=== PATIENT | female | born 2000 | race Caucasian/White ===

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

== ENCOUNTER 2020-03-04 12:42 | Emergency (ER) | payer OTHER, SELFPAY ==
[2020-03-04 13:51] VITALS: BP 112/75; PULSE 71; RESP 16; TEMP 36.7; O2SAT 100; BMI 26.4
--- NOTE | 2020-03-04 13:51 | HMH.EDUTC ---
[place] Disposition Clinical Impression: Viral syndrome Disposition: Home, Self-Care Condition on Discharge: Good Instructions: DI for Viral Syndrome, Preventing the Spread of Coronavirus Discharge Instructions Additional Instructions: Drink plenty of fluids. Take tylenol for pain or fever. Take the medications as directed. Follow up with your regular doctor. GO TO THE ER FOR ANY WORSENING SYMPTOMS FOLLOW THE DIRECTIONS ON THE COVID-19 HAND OUT THAT WE GAVE YOU REGARDING SELF-ISOLATION UNTIL YOU KNOW YOUR COVID-19 RESULTS Referrals: Maldonado Fallon MD [Primary Care Provider] - Forms: Work/School Release Time of Disposition: 14:16 Medical Decision Making - Medical Records Medical records reviewed: No: I reviewed the patient's medical records. - Marek Inquiry Pt receiving controlled substance: No Vital Signs: 03/04/20 13:51 03/04/20 14:16 Temperature 98.1 F 98.1 F Temperature Source Oral Pulse Rate 71 Pulse Rate [Right Radial] 71 Respiratory Rate 16 16 Blood Pressure 112/75 Blood Pressure [Left Arm] 112/75 Blood Pressure Mean [Left Arm] 87 Blood Pressure Source [Left Arm] Automatic Cuff Blood Pressure Position Sitting Blood Pressure Position [Left Arm] Sitting 02 Sat by Pulse Oximetry 100 Oxygen Delivery Method Room Air Room Air Orders (Tests/Meds): ORDERS Category Date Time Status Covid-19 Nasal PCR ([facility]) Routine Lab 03/04/20 14:05 Received [place] HPI - General Stated complaint: covid test Time Seen by Provider: 03/04/20 13:51 - History of Present Illness Provider Complaint: She states that for the past 2 days she has had a headache, sinus congestion, nonproductive cough. 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 - Related Data Home Medications Medication Instructions Recorded Confirmed Norgestimate-Ethinyl Estradiol 1 each PO DAILY 07/14/18 08/10/19 [Ortho Tri-Cyclen Lo Tablet] Allergies Allergy/AdvReac Type Severity Reaction Status Date / Time No Known Allergies Allergy Unverified 04/29/17 15:10 [facility] History - Hepatitis A Screen Attestation statement:: This patient has been screened for Hepatitis A risk factors. I have reviewed the patient's past medical history: Yes Medical History: Denies:: Cancer, Diabetes Mellitus Type 1, Diabetes Mellitus Type 2, MRSA Amputation: No - Social History Smoking Status: Never smoker Alcohol Intake: never Occupational Status: employed ROS Obtained: Yes All systems reviewed & no additional complaints - Constitutional Constitutional: Reports system reviewed and no additional complaints, except as docu - Eyes Eyes: Reports system reviewed and no additional complaints, except as docu - ENT Ears, Nose, Mouth, and Throat: Reports system reviewed and no additional complaints, except as docu - Cardiovascular Cardiovascular: Reports system reviewed and no additional complaints, except as docu - Respiratory Respiratory: Yes system reviewed and no additional complaints, except as docu - Gastrointestinal Gastrointestingal: Reports: system reviewed and no additional complaints, except as docu Physical Exam - General General appearance: alert, in no apparent distress - Head Head exam: atraumatic, normocephalic, normal inspection - Eye Eye exam: Present: normal appearance, PERRL, EOMI - ENT ENT exam: Present: normal exam, normal oropharynx, mucous membranes moist, TM's normal bilaterally, normal external ear exam - Neck Neck exam: Present: normal inspection, full ROM, trachea midline. Absent: meningismus, lymphadenopathy - Chest Chest inspection: Present: normal inspection, symmetric chest wall rise. Absent: tenderness - Respiratory Respiratory exam: Present: normal lung sounds bilaterally. Absent: respiratory distress - Cardiovascular Cardiovascular exam: Present: regular rate, normal rhythm. Absent: JVD - Abdominal Exam Abdominal exam: Present: soft, normal
[2020-03-04 14:16] VITALS: BP 112/75; PULSE 71; RESP 16; TEMP 36.7; O2SAT 100
== END 2020-03-04 14:21 | disposition home or self-care (01) ==
PROVIDERS: Emergency Provider Nurse Practitioner Family; PCP Internal Medicine Adolescent Medicine
DX: Z20.828 Contact with and (suspected) exposure to other viral communicable diseases (principal); B34.9 Viral infection, unspecified
CPT/HCPCS: 99201; U0003

== ENCOUNTER → 2020-11-01 11:42 | Outpatient (CLI) | payer OTHER, SELFPAY ==
[2020-11-01 12:33] LABS: Alanine Aminotransferase 14 U/L (12-78); Albumin Level 4.3 g/dl (3.5-5.0); Albumin/Globulin Ratio 1.3 (1.1-1.8); Alkaline Phosphatase 74 U/L (38-126); Aspartate Amino Transferase 26 U/L (14-36); Bilirubin,Total 0.7 mg/dl (0.2-1.3); Blood Urea Nitrogen 12 mg/dl (7-17); Calcium 9.3 mg/dl (8.4-10.2); Carbon Dioxide 25 mmol/L (22.0-30.0); Chloride 102 mmol/L (98-107); Chol/HDL Ratio 2.1 (1-3.5); Cholesterol 181 mg/dl (140-200); Estimated Glomerular Filt Rate 108 ml/min (>60); GFR (African American) 130 ML/MIN (>60); Globulin 3.4 g/dL (1.3-3.2); Glucose 90 mg/dl (74-100); HDL Cholesterol 87 mg/dl (40-60); Sodium 138 mmol/L (136-145); Total Protein,Serum 7.7 g/dl (6.3-8.2); Triglycerides 68 mg/dl (30-150); VLDL Cholesterol 14 mg/dL (0-40)
[2020-11-01 12:44] LABS: Direct LDL Cholesterol 83.55 mg/dL (100-129)
[2020-11-01 12:53] LABS: HCG,Quantitative < 2 mIU/ml (0-5.42)
== END ==
PROVIDERS: Visit Provider Internal Medicine Adolescent Medicine
DX: Z00.00 Encounter for general adult medical examination without abnormal findings (principal); Z30.09 Encounter for other general counseling and advice on contraception
CPT/HCPCS: 36415; 80053; 80061; 84702

== ENCOUNTER 2021-01-17 14:53 | Emergency (ER) | payer OTHER, SELFPAY ==
[2021-01-17 16:10] VITALS: BP 115/81; PULSE 68; RESP 17; TEMP 37; O2SAT 100; BMI 27.3
--- NOTE | 2021-01-17 16:19 | HMH.EDUTC ---
[facility] [place] Clinical Impression: Encounter for laboratory testing for COVID-19 virus Disposition: Home, Self-Care Condition on Discharge: Good Instructions: DI for COVID-19 (Suspected or Confirmed ), Preventing the Spread of Coronavirus Discharge Instructions Additional Instructions: *Monitor Temp, Over the counter Motrin or Tylenol as directed/as needed Tylenol every 4 hours and Motrin every 6 hours (as long as your family doctor has told you that you can take it) for fever or pain. and straight to ER if unable to lower temp less than 101.0 after medication given Follow up IMMEDIATELY for new or worsening symptoms or no Noticeable improvement over the next 48-72 hours. 911 for difficulty breathing or swallowing You were tested for today for COVID19 your test result should be back in the next 24-48 hours, you was given instructions on how to log on the [facility] portal for your results. If you do not have internet or access you may call the [facility]. You was given a handout with instructions for Self Quarantine and Self isolation for while you wait on test results and what to do if they are positive If you are positive the Health Dept will be contacting you also Make sure to take your Vitamins Vit. C Vit D and Zinc if you can take them Referrals: Maldonado Fallon MD [Primary Care Provider] - As needed Forms: Work/School Release Medical Decision Making - Marek Inquiry Pt receiving controlled substance: No Marek was queried for this patient: No Vital Signs: 01/17/21 16:10 Temperature 98.6 F Temperature Source Oral Pulse Rate [Right] 68 Respiratory Rate 17 Blood Pressure [Right Arm] 115/81 Blood Pressure Mean [Right Arm] 92 02 Sat by Pulse Oximetry 100 [facility] [place] - General Stated complaint: exposure ,covid test Time Seen by Provider: 01/17/21 16:19 Description of Symptoms (Recalled from Triage Doc. by RN): COVID TEST, POSITIVE 5 DAYS AGO, THEN NEGATIVE YESTERDAY AT WORK. DENIES SYMPTOMS HEENT Symptoms (Recalled from RN notes): No Resp Symptoms (Recalled from RN notes): No Skin Symptoms (Recalled from RN notes): No MS Symptoms (Recalled from RN notes): No Functional Status (Recalled from RN notes): WNL - History of Present Illness Provider Complaint: Patient states that she has taken several of the Rapid COVID test at work States that first test about 5 days ago was positive and one yesterday was negative so she came in today to get retested to see what it shows denies any symptoms - Related Data Home Medications Medication Instructions Recorded Confirmed Norgestimate-Ethinyl Estradiol 1 each PO DAILY 07/14/18 01/17/21 [Ortho Tri-Cyclen Lo Tablet] Allergies Allergy/AdvReac Type Severity Reaction Status Date / Time No Known Allergies Allergy Verified 01/17/21 16:15 - Worker's Comp Is this a Worker's Comp case?: No [facility] History - Hepatitis A Screen Drug use history?: No High risk sexual behaviors?: No History of sexually transmitted infection?: No Currently employed?: No Childcare worker?: No Do you have indoor plumbing?: Yes Do you have electricity?: Yes Attestation statement:: This patient has been screened for Hepatitis A risk factors. I have reviewed the patient's past medical history: Yes Medical History: Denies:: Cancer, Diabetes Mellitus Type 1, Diabetes Mellitus Type 2, MRSA Amputation: No - Social History Smoking Status: Never smoker Alcohol Intake: never Occupational Status: employed ROS Obtained: Yes All systems reviewed & no additional complaints, Yes Systems reviewed as appropriate & no additional complaints - Constitutional Constitutional: Reports system reviewed and no additional complaints, except as docu, Denies body ache, Denies chills, Denies fatigue, Denies fever(s), Denies headache(s) - ENT Ears, Nose, Mouth, and Throat: Reports system reviewed and no additional complaints, except as docu, Denies nasal congestion, Denies nasal discharge, Denies
[2021-01-17 16:31] VITALS: BP 115/81; PULSE 68; RESP 17; TEMP 37; O2SAT 100
--- NOTE | 2021-01-18 18:15 | PC.NURSE ---
informed patient that she is positive
== END 2021-01-17 16:32 | disposition home or self-care (01) ==
PROVIDERS: Emergency Provider Nurse Practitioner; PCP Internal Medicine Adolescent Medicine
DX: U07.1 COVID-19 (principal)
CPT/HCPCS: 99202; G0463; U0003

== ENCOUNTER 2021-02-26 15:49 | Emergency (ER) | payer OTHER, SELFPAY ==
[2021-02-26 15:50] VITALS: BP 144/84; PULSE 110; RESP 16; TEMP 37.7; O2SAT 98; BMI 24.9
--- NOTE | 2021-02-26 16:24 | HMH.EDUTC ---
[facility] [place] Dis[place] Clinical Impression: Viral syndrome Disposition: Home, Self-Care Condition on Discharge: Good Instructions: DI for Viral Syndrome Additional Instructions: Drink plenty of fluids. Take tylenol or ibuprofen for pain or fever. Take the medications as directed. Follow up with your regular doctor. GO TO THE ER FOR ANY WORSENING SYMPTOMS Quarantine until you know the results of your covid-19 test. If it is positive, the health department should call you and give you further instructions about your length of Quarantine and other things. Notify your school or workplace of your results and follow their instructions regarding return to work/school. Prescriptions: Ondansetron [Zofran 4mg ODT] 4 mg PO Q8HP PRN #12 tab PRN Reason: Nausea Transmission Status: Received by [facility] #[id number] Referrals: Maldonado Fallon MD [Primary Care Provider] - Forms: Work/School Release Time of Disposition: 17:20 Medical Decision Making - Medical Records Medical records reviewed: Yes: I reviewed the patient's medical records. - Marek Inquiry Pt receiving controlled substance: No Vital Signs: 02/26/21 15:50 02/26/21 17:45 Temperature 99.9 F H 99.9 F H Temperature Source Oral Pulse Rate 110 H Pulse Rate [Right] 110 H Respiratory Rate 16 16 Blood Pressure 128/70 Blood Pressure [Right Arm] 144/84 H Blood Pressure Mean [Right Arm] 104 Blood Pressure Source Automatic Cuff Blood Pressure Source [Right Arm] Automatic Cuff Blood Pressure Position Sitting Blood Pressure Position [Right Arm] Sitting 02 Sat by Pulse Oximetry 98 Oxygen Delivery Method Room Air Room Air - Lab Data Lab results reviewed: Yes: I reviewed the patient's lab results. Lab Results 02/26/21 16:17: SARS-CoV-2 (PCR) Not detected, Influenza A Untype (PCR) Not detected, Influenza Type B (PCR) Not detected 02/26/21 16:48: Strep Scn Rapid Clinic Negative Orders (Tests/Meds): ORDERS Category Date Time Status Strep Screen Confirmation Routine Micro 02/26/21 16:48 Received [facility] [place] HPI - General Stated complaint: fever,chills,sore throat,cough,DOTY Time Seen by Provider: 02/26/21 16:24 Mode of Arrival: Ambulatory Source of Information: Patient Limitations: No Limitations Description of Symptoms (Recalled from Triage Doc. by RN): pt c/o body aches, fever, chills, headache that started this morning HEENT Symptoms (Recalled from RN notes): Yes (multiple symptoms) Resp Symptoms (Recalled from RN notes): No Skin Symptoms (Recalled from RN notes): No MS Symptoms (Recalled from RN notes): No Functional Status (Recalled from RN notes): na - History of Present Illness Provider Complaint: She states that since yesterday she has felt bad. Her main complaint is body aches at this time. She has also been chilling. She denies any sore throat, n/v/d, and cough. - Related Data Home Medications Medication Instructions Recorded Confirmed Norgestimate-Ethinyl Estradiol 1 each PO DAILY 07/14/18 01/17/21 [Ortho Tri-Cyclen Lo Tablet] Previous Rx's Medication Instructions Recorded Ondansetron [Zofran 4mg ODT] 4 mg PO Q8HP PRN #12 tab 02/26/21 Allergies Allergy/AdvReac Type Severity Reaction Status Date / Time No Known Allergies Allergy Verified 01/17/21 16:15 - Worker's Comp Is this a Worker's Comp case?: No [facility] History - Hepatitis A Screen Drug use history?: No High risk sexual behaviors?: No History of sexually transmitted infection?: No Currently employed?: No Childcare worker?: No Do you have indoor plumbing?: Yes Do you have electricity?: Yes Attestation statement:: This patient has been screened for Hepatitis A risk factors. I have reviewed the patient's past medical history: Yes Medical History: Denies:: Cancer, Diabetes Mellitus Type 1, Diabetes Mellitus Type 2, MRSA Amputation: No - Social History Smoking Status: Never smoker Alcohol Intake: never O
[2021-02-26 16:50] LABS: Coronavirus 19, PCR Not Detected (NotDetected); Influenza A, PCR Not Detected (NotDetected); Influenza B, PCR Not Detected (NotDetected)
[2021-02-26 17:05] LABS: UTC Strep Screen (Rapid) Negative (Negative)
[2021-02-26 17:45] VITALS: BP 128/70; PULSE 110; RESP 16; TEMP 37.7; O2SAT 98
== END 2021-02-26 17:47 | disposition home or self-care (01) ==
PROVIDERS: Emergency Provider Nurse Practitioner Family; PCP Internal Medicine Adolescent Medicine
DX: B34.9 Viral infection, unspecified (principal); R11.2 Nausea with vomiting, unspecified
CPT/HCPCS: 87880; 99203; C9803; G0463; U0003; U0005

== ENCOUNTER → 2021-12-19 17:05 | Outpatient (CLI) | payer OTHER, SELFPAY | PROVIDERS: PCP Internal Medicine Adolescent Medicine; Visit Provider Internal Medicine Adolescent Medicine | DX: R19.7 Diarrhea, unspecified (principal) ==

== ENCOUNTER → 2021-12-20 16:26 | Outpatient (CLI) | payer OTHER, SELFPAY ==
[2021-12-20 16:36] LABS: Adenovirus F 40/41, stool Not Detected (NotDetected); Astrovirus Not Detected (NotDetected); Campylobacter Not Detected (NotDetected); Clostridium Difficile A/B, PCR Not Detected (NotDetected); Cryptosporidium Not Detected (NotDetected); Cyclospora Cayetanesis Not Detected (NotDetected); Entamoeba histolytica Not Detected (NotDetected); Enteroaggregative E coli Not Detected (NotDetected); Enterotoxigenic E coli Not Detected (NotDetected); Giardia lamblia Not Detected (NotDetected); Norovirus Not Detected (NotDetected); Plesimonas Shigalloides, PCR Not Detected (NotDetected); Rotavirus A Not Detected (NotDetected); Salmonella, PCR Not Detected (NotDetected); Sapovirus Not Detected (NotDetected); Shiga-like toxin E coli Not Detected (NotDetected); Shigella Enterovasive E coli Not Detected (NotDetected); Vibrio Cholerae Not Detected (NotDetected); Vibrio, PCR Not Detected (NotDetected); Yersinia Entercolitica, PCR Not Detected (NotDetected)
[2021-12-20 21:42] LABS: Enteropathogenic E coli Detected (NotDetected)
== END ==
PROVIDERS: PCP Internal Medicine Adolescent Medicine; Visit Provider Internal Medicine Adolescent Medicine
DX: R19.7 Diarrhea, unspecified (principal); A04.0 Enteropathogenic Escherichia coli infection
CPT/HCPCS: 87507

== ENCOUNTER → 2023-05-08 13:57 | Outpatient (CLI) | payer BC, OTHER, SELFPAY ==
--- NOTE | 2023-05-08 13:58 | US_ITS ---
PROCEDURE: US OB BIOPHYSICAL PROFILE CLINICAL INDICATION: sga COMPARISON: FINDINGS: Transabdominal sonographic images of the uterus were obtained. From her established due date she is 32weeks 6days. The following parameters are obtained: Viable fetus in the cephalic presentation with an anterior placenta grade 2 Average ultrasound age is 32weeks 2days. Estimated due date by ultrasound is 07/01/2023. Estimated weight is 4lb 1oz, 1852 grams. Cervical length is 3.8 cm. heart rate: 128bpm bpm. BPD: 32 weeks 6 days OFD: 32weeks 2 days HC: 32 weeks 2 days AC: 31 weeks 6 days FL: 31 weeks 4 days HC/AC: 1.05 Cephalic index: 0.79 FL/BPD: 0.74 FL/AC: 0.22 15 percentile Amniotic fluid index: 10.2cm, MVP 3.96 cm. Qualitative AFV: 2 breathing movements: 2 Gross body movements: 2 Tone: 2 Biophysical profile score: 8 Doppler evaluation of the umbilical artery: SD ratio: 2.50-2.78 Resistive index: 0.64 No obvious anomalies evident.Kidneys, three-vessel cord appear normal. IMPRESSION: 1. Viable fetus in the cephalic presentation with an anterior placenta grade 2. 2. The fluid is within normal limits with an amniotic fluid index of 10.2 cm, MVP 3.96 cm. 3. Biophysical profile 8/8 with good breathing movement and movement seen. 4. SD ratio is normal measuring 2.50-2.78. 5. There has been good interval growth with the fetus currently 15 percentile. The AC is 1 week behind. Dictated by: Kendall Zhang MD 05/09/2023 13:52 Kendall Zhang MD in [place] 05/09/2023 13:52
== END ==
LOC: RAD 13:58
PROVIDERS: PCP Internal Medicine Adolescent Medicine; Visit Provider Obstetrics & Gynecology
DX: O36.5930 Maternal care for other known or suspected poor fetal growth, third trimester, not applicable or unspecified (principal); Z3A.32 32 weeks gestation of pregnancy
CPT/HCPCS: 76816; 76819; 76820

== ENCOUNTER 2023-06-05 09:26 | Outpatient (CLI) | payer BC, OTHER, SELFPAY | END 2023-06-05 23:59 | LOC: LAB.DROPOF 06-09 09:27 | PROVIDERS: PCP Obstetrics & Gynecology; Visit Provider Obstetrics & Gynecology | DX: Z34.90 Encounter for supervision of normal pregnancy, unspecified, unspecified trimester (principal) | CPT/HCPCS: 86403 ==

== ENCOUNTER 2023-06-05 12:58 | Outpatient (CLI) | payer BC, OTHER, SELFPAY ==
--- NOTE | 2023-06-05 12:58 | US_ITS ---
PROCEDURE: US OB BIOPHYSICAL PROFILE CLINICAL INDICATION: sga COMPARISON: US US OB BIOPHYSICAL PROFILE from 05/08/2023 FINDINGS: Transabdominal sonographic images of the uterus were obtained. From her established due date she is 36weeks 6days. The following parameters are obtained: Viable Fetus in the cephalic presentation with and anterior placenta grade 2. Average ultrasound age is 36weeks 1day Estimated weight 2,871g, 6 lb 5 oz Cervix measures 2.9 cm. Measurements: heart Rate = 135bpm BPD = 36weeks 0 days HC = 36weeks 0 days AC = 36weeks 3days FL = 36weeks 0 days FL/BPD is 0.79 FL/AC is 0.22 37 percentile Amniotic fluid index: 6.04cm, MVP 4.71 cm. Qualitative AFV:2 Breathing movements: 2 Gross Body Movements: 2 Tone: 2 Biophysical profile score: 8 Doppler evaluation of the umbilical artery: SD ratio: 2.19-2.49 Resistive index: 0.54 No obvious anomalies evident.Kidneys, stomach, bladder, three-vessel cord appear normal. IMPRESSION: 1. Viable fetus in the cephalic presentation with an anterior placenta grade 2. 2. The fluid is within normal limits with an amniotic fluid index of 6.04 cm. MVP 4.71 cm. 3. Biophysical profile 12/17 with good breathing movements and movement seen. 4. There has been good interval growth with the fetus currently 37th percentile. Dictated by: Kendall Zhang MD 06/07/2023 10:14 Kendall Zhang MD in OV 06/07/2023 10:14
== END 2023-06-05 23:59 ==
LOC: RAD 12:58
PROVIDERS: PCP Internal Medicine Adolescent Medicine; Visit Provider Obstetrics & Gynecology
DX: O36.5930 Maternal care for other known or suspected poor fetal growth, third trimester, not applicable or unspecified (principal); Z3A.36 36 weeks gestation of pregnancy
CPT/HCPCS: 76816; 76819; 76820; 86403

== ENCOUNTER 2023-06-25 07:54 | Outpatient (CLI) | payer BC, OTHER, SELFPAY ==
[2023-06-25 08:23] VITALS: BMI 27.2
[2023-06-25 08:29] LABS: Microscopic, Urine URINE MICROSCOPIC (MICROSCOPIC)
[2023-06-25 08:31] VITALS: BP 114/74; PULSE 94; RESP 17; TEMP 37.1; O2SAT 98; BMI 27.2
[2023-06-25 08:34] LABS: Fetal Membrane Rupture (Rapid) Negative (Negative)
[2023-06-25 08:38] LABS: Appearance,Urine CLEAR (Clear); Bilirubin,Urine Negative (Negative); Blood, Urine Negative (Negative); Color,Urine YELLOW (Yellow); Glucose,Urine (UA) Negative (Negative); Ketones,Urine Negative (Negative); Leukocyte Esterase,Urine TRACE (Negative); Nitrate,Urine Negative (Negative); PH,Urine 7.5 (5.0-8.5); Protein,Urine Negative (Negative)
[2023-06-25 08:51] LABS: Amphetamine/Metha Screen,Urine Negative ng/ml (<1000); Benzodiazepines Screen,Urine Negative ng/ml (<200)
[2023-06-25 08:52] LABS: Barbiturates Screen,Urine Negative ng/ml (<200)
[2023-06-25 08:54] LABS: Cocaine Screen,Urine Negative ng/ml (<300)
[2023-06-25 08:55] LABS: Opiate Screen,Urine Negative ng/ml (<300); Phencyclidine Screen,Urine Negative ng/ml (<25)
[2023-06-25 09:01] LABS: Methadone Screen,Urine Negative ng/ml (<300)
[2023-06-25 12:39] LABS: Cannabinoid Screen,Urine Negative ng/ml (<50)
== END 2023-06-25 09:00 | disposition home or self-care (01) ==
LOC: OBOUT 07:54 → OB 07:55
PROVIDERS: PCP Internal Medicine Adolescent Medicine; Visit Provider Nurse Practitioner Obstetrics & Gynecology
DX: O26.893 Other specified pregnancy related conditions, third trimester (principal); Z3A.39 39 weeks gestation of pregnancy
CPT/HCPCS: 59025; 80307; 81001; 84112; G0463

== ENCOUNTER 2023-07-01 14:55 | Inpatient (IN) | payer BC, OTHER, SELFPAY ==
[2023-07-01 15:03] VITALS: BMI 26.9
[2023-07-01 15:46] VITALS: BP 124/77; PULSE 97; RESP 18; TEMP 36.7; O2SAT 100; BMI 26.9
[2023-07-01 15:50] LABS: Basophils % 0.4 % (0.1-2.0); Eosinophils % 0.4 % (0.1-12.0); Hematocrit 32.4 % (37.0-47.0); Hemoglobin 10.6 g/dL (12.2-16.2); Lymphocytes # 3.2 K/mm3 (0.7-4.5); Lymphocytes % 33.1 % (10-50); Mean Corpuscular HGB Conc 32.8 g/dL (31.8-35.4); Mean Corpuscular Hemoglobin 23.9 pg (27.0-31.2); Mean Corpuscular Volume 72.9 fl (81-99); Mean Platelet Volume 11.8 fl (7.4-10.4); Monocytes # 0.6 K/mm3 (0.1-1.0); Monocytes % 5.7 % (1.7-9.3); Neutrophils # 5.9 K/mm3 (1.8-7.8); Neutrophils % 60.4 % (37.0-80.0); Platelet Count 222 K/mm3 (142-424); Red Blood Count 4.44 M/mm3 (4.20-5.40); Red Cell Distribution Width 16.8 % (11.5-17.5); White Blood Count 9.7 K/mm3 (4.8-10.8)
[2023-07-01 15:53] LABS: Microscopic, Urine URINE MICROSCOPIC (MICROSCOPIC)
[2023-07-01] MEDS: miSOPROStol 100MCG TABLET 50 MCG VG ×2 (16:19→22:32)
[2023-07-01 16:24] LABS: Appearance,Urine CLEAR (Clear); Bilirubin,Urine Negative (Negative); Blood, Urine Negative (Negative); Color,Urine YELLOW (Yellow); Glucose,Urine (UA) Negative (Negative); Ketones,Urine Negative (Negative); Leukocyte Esterase,Urine Negative (Negative); Nitrate,Urine Negative (Negative); Protein,Urine Negative (Negative); Urobilinogen,Urine 0.2 EU/dl (0.2)
[2023-07-01 16:39] LABS: Amphetamine/Metha Screen,Urine Negative ng/ml (<1000); Bacteria,Urine 1+ /lpf; Benzodiazepines Screen,Urine Negative ng/ml (<200)
[2023-07-01 16:40] LABS: Barbiturates Screen,Urine Negative ng/ml (<200)
[2023-07-01 16:41] LABS: Cannabinoid Screen,Urine Negative ng/ml (<50); Cocaine Screen,Urine Negative ng/ml (<300)
[2023-07-01 16:42] LABS: Methadone Screen,Urine Negative ng/ml (<300); Opiate Screen,Urine Negative ng/ml (<300)
[2023-07-01 16:43] LABS: Phencyclidine Screen,Urine Negative ng/ml (<25)
[2023-07-01] MEDS: DEXTROSE 5%-LACTATED RINGERS 1,000 ML 125 ML IV (18:58)
[2023-07-01 20:20] VITALS: BP 124/7; PULSE 83; RESP 17; TEMP 36.9; O2SAT 97
[2023-07-02] MEDS: DEXTROSE 5%-LACTATED RINGERS 1,000 ML 125 ML IV (02:58)
[2023-07-02] MEDS: LACTATED RINGERS 1000ML 1,000 ML 250 ML IV (04:10)
--- NOTE | 2023-07-02 05:54 | P.PNANES_ITS ---
[facility] Disclaimer: The information contained in this section may have been updated after the patient was seen, as this information can be updated by other users. 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 Anesthesia Checklist Patient Identification Patient Identification: Arm Band and Family Structural Data Admitted From: Inpatient Planned Operative Procedure/s: Labor Epidural Consent for Planned Operative Procedure(s) Verified: Yes Verified Documents: Surgical Consent and History and Physical NPO Status Verified Time NPO: 00:00 Additional verifications Patient : Yes Anesthesia Reactions: No Blood Transfusion Reaction: No Cephalosporin Allergy: No Previous Colonoscopy: No Airway Assessment Mallampati Score:: Class I C-Spine Mobility Assessed: Yes TMJ Mobility Assessed: Yes Dentition: Good Dentition Neurological Assessment Level of Consciousness: Awake, Alert, Appropriate and Follows Commands Hx Seizures: No Numbness or tingling in extremities: No Anesthesia Plan Anesthesia Risk discussed: Yes ASA Class: I Anesthesia Type: Epidural Preoperative Comments Pre-Operative Comments: 40 weeks/4 days gestation in labor.
--- NOTE | 2023-07-02 06:44 | EXP.OB.APHP ---
OB - H&P: HPI Antepartum History of Present Illness Chief complaint: Elective induction of labor History of present illness: Ms Bev Cooper is a 22 yo at 40w5d who presents to [facility] for scheduled induction of labor for postdates. She was a transfer of care from [place] at 28 weeks. She has had good care. Growth ultrasound 06/05/23 demonstrated EFW 37 %ile. GBS negative. History of Present Criteria for establishing EDC:: based on 1st trimester US only care: good care Ultrasounds: normal mid trimester US Obstetrical complications: none Medical complications: none Labs Blood type: O (+) positive Rubella: immune RPR/VDRL: nonreactive GBS status: negative HBsAG: negative PFSH [facility] Disclaimer: The information contained in this section may have been updated after the patient was seen, as this information can be updated by other users. 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: No Review of Systems Review of Systems Review of systems:: pertinent systems reviewed and negative unless documented below Meds Home Medications and Allergies Home Medications Medication Instructions Recorded Confirmed Type vits no.126-ferrous fum 1 tab PO DAILY Supplement 04/09/23 07/01/23 History 28 mg iron-folic acid 800 mcg tablet (Classic ) New Prescriptions to Start Prescriptions: Allergies Allergy/AdvReac Type Severity Reaction Status Date / Time banana Allergy Mild Verified 06/30/23 08:54 shellfish derived Allergy Mild Verified 06/30/23 08:54 OB - H&P: Exam Physical Exam Vital signs: Temp Pulse Resp BP Pulse Ox O2 Del Method 98.4 F 83 17 124/7 L 97 Room Air 07/01/23 20:20 07/01/23 20:20 07/01/23 20:20 07/01/23 20:20 07/01/23 20:20 07/01/23 20:20 Constitutional no acute distress and cooperative Routine HEENT Exam Head: Present normocephalic and atraumatic Eye: Absent conjunctivae pink ENT: Present mucous membranes moist Routine Neck Exam Present full ROM Routine Respiratory Exam Present CTA bilaterally and normal respiratory effort Routine Cardiovascular Exam Present RRR Routine Abdominal Exam Present soft (Gravid); Absent tenderness Routine Rectal Exam Patient deferred: visual exam Routine Exam External: Present normal urethra appearance; Absent erythema, lesions or lacerations Routine Extremities Exam Present full ROM; Absent edema or calf tenderness Routine Neurological Exam Present alert, moving all extremities and normal speech Routine Psychiatric Exam Present normal affect and cooperative Detailed Labor and Delivery Exam Dilation (cm): 9 Effacement (%): 90 Cervix position: mid station: +1 Consistency: medium Membranes: spontaneously ruptured Amniotic fluid: thin meconium Baseline heart rate: 115 monitor accelerations: Present monitor decelerations: Early MCC variability: Moderate (11-25) Contraction frequency (min): 2 OB - Results Labs Labs: Short CBC 07/01/23 Range/Units 15:42 WBC 9.7 (4.8-10.8) K/mm3 Hgb 10.6 L (12.2-16.2) g/dL Hct 32.4 L (37.0-47.0) % Plt Count 222 (142-424) K/mm3 Urine 07/01/23 Range/Units 15:40 Urine Color Yellow (Yellow) Urine Appearance Clear (Clear) Urine pH 7.0 (5.0-8.5) Ur Specific [place] 1.020 (1.005-1.030) Urine Protein Negative (Negative) Urine Glucose (UA) Negative (Negative) OB - A/P Antepartum (1) Post-dates : Status: Acute (2) Encounter for induction of labor: Status: Acute Additional Plan Planning to breastfeed?: Yes Additional Information:: Admit to L&D for induction of labor. Induction of labor with Cytotec GBS negative Close monitoring
[2023-07-02] MEDS: OXYTOCIN/RINGERS LACTATE 30 UNITS/500 ML BAG 40 UNITS IV (08:12)
[2023-07-02] MEDS: TRANEXAMIC ACID 1,000 MG in 0.9 % SODIUM CHLORIDE 250 ML 500 MG IV (08:21)
[2023-07-02 08:24] LABS: Cord Blood PH 7.14 (7.35-7.45)
[2023-07-02 08:25] LABS: Cord Blood PH 7.12 (7.35-7.45)
--- NOTE | 2023-07-02 08:32 | EXP.DN ---
Delivery Note Delivery Date:: 07/02/23 Delivery Time:: 08:04 Anesthesia Type: Epidural Was labor medically induced?: No Induction method: per misoprostol protocol Gestational age (weeks): 40 delivered prior to 39 weeks?: No Gender: Female at 1 minute: 7 at 5 minutes: 8 LAC or MLE?: LAC Delivery Procedure:: Mom complete with epidural. Pushed for approximately 1 hour. Head delivered spontaneously over intact perineum in ARNAUD position. Nuchal cord x 1 easily reduced. Shoulder dystocia relieved with Mc Angulo maneuver and gentle downward pressure within 20 seconds. Posterior shoulder and remainder of body delivered spontaneously. Baby placed on maternal abdomen, mouth and nares bulb suctioned, warmed/dried and stimulated. Delayed cord clamping was performed for 60 seconds. Cord was clamped and cut by father of baby. Section of cord was obtained for cord gases. Cord blood was obtained. Placenta delivered spontaneously and intact. Placenta will be sent to pathology for review. Left labial and left vaginal wall laceration repaired with 3-0 Vicryl. Hemostasis noted. Mom and baby were skin to skin and doing well after delivery. Live male baby (baby's name is Autumn) APGARs 7 (1 min), 9 (5 min) EBL 450 mL Laceration:: vaginal Placental Delivery Description: Spontaneous
[2023-07-02] MEDS: ACETAMINOPHEN 500MG TAB 1000 MG PO (13:18)
[2023-07-02] MEDS: IBUPROFEN 400 MG TABLET 800 MG PO (13:19)
[2023-07-02] MEDS: WITCH HAZEL 40 PADS/BOX 1 EACH TP (13:19)
[2023-07-02] MEDS: BENZOCAINE-MENTHOL SPRAY 56GM CAN TP (13:19)
[2023-07-02] MEDS: PRENATAL MULTIVITAMIN W/IRON 1 EACH PO (17:12)
[2023-07-02 20:51] VITALS: BP 127/77; PULSE 70; RESP 20; TEMP 36.6; O2SAT 99
[2023-07-03 06:13] LABS: Basophils % 0.4 % (0.1-2.0); Eosinophils % 0.3 % (0.1-12.0); Hematocrit 27.7 % (37.0-47.0); Hemoglobin 8.7 g/dL (12.2-16.2); Lymphocytes # 3.9 K/mm3 (0.7-4.5); Lymphocytes % 37.4 % (10-50); Mean Corpuscular HGB Conc 31.5 g/dL (31.8-35.4); Mean Corpuscular Hemoglobin 23.8 pg (27.0-31.2); Mean Corpuscular Volume 75.5 fl (81-99); Monocytes # 0.5 K/mm3 (0.1-1.0); Monocytes % 4.3 % (1.7-9.3); Neutrophils # 6.1 K/mm3 (1.8-7.8); Neutrophils % 57.7 % (37.0-80.0); Platelet Count 180 K/mm3 (142-424); Red Blood Count 3.66 M/mm3 (4.20-5.40); Red Cell Distribution Width 17.1 % (11.5-17.5); White Blood Count 10.5 K/mm3 (4.8-10.8)
--- NOTE | 2023-07-03 07:31 | P.PN_ITS ---
Subjective *Date: 07/03/23 *Time: 12:03 Interval history: PPD # 1 s/p Bev is doing well. Pain controlled. Breast feeding. Lochia is appropriate. Voiding without difficulty and passing flatus. Tolerating regular diet. Denies fever/chills, chest pain and shortness of breath. No headaches, vision changes, lightheadedness/dizziness. No lower extremity edema. Ambulating well ad jno. Medical Exam Vital signs and Labs for Last 24 Hours: Vital Signs Temp Pulse Resp BP Pulse Ox O2 Del Method 07/02/23 20:51 97.9 F 70 20 127/77 99 Room Air Intake and Output 07/02/23 07/02/23 07/03/23 15:59 23:59 07:59 Other: Number of Unmeasured Voids 1 Laboratory Results - last 24 hr 07/01/23 15:42: Blood Type O Positive, Antibody Screen Negative, Crossmatch (AHG) See Detail 07/02/23 08:17: Cord ABG pH 7.14 L* 07/02/23 08:21: Cord ABG pH 7.12 L* 07/02/23 10:35: Blood Type Confirm O Positive 07/03/23 05:10: WBC 10.5, RBC 3.66 L, Hgb 8.7 L, Hct 27.7 L, MCV 75.5 L, MCH 23.8 L, MCHC 31.5 L, RDW 17.1, Plt Count 180, MPV 11.0 H, Neut % (Auto) 57.7, Lymph % (Auto) 37.4, [place] % (Auto) 4.3, Eos % (Auto) 0.3, Baso % (Auto) 0.4, Neut # (Auto) 6.1, Lymph # (Auto) 3.9, [place] # (Auto) 0.5, Eos # (Auto) 0.0, Baso # (Auto) 0.0 I & O for Labs for Last 24 Hours: Intake & Output 06/30/23 07/01/23 07/02/23 07/03/23 23:59 23:59 23:59 23:59 Output Total 300 / 300 Balance -300 / -300 Weight 147 lb Head: Present atraumatic and normocephalic ENT: Present normal exam Neck: Present full ROM Respiratory: Present CTA bilaterally and normal respiratory effort Cardiac: Present Reg Rate and Rhythm GI: Present soft; Absent distention or tenderness Comments:: Uterine fundus firm and below umbilicus Rectal (female): Present deferred (female): Present deferred Extremities: Present full ROM; Absent edema or calf tenderness Neuro: Present alert, awake and moves all extremities Assessment and Plan *Assessment and plan (1) Status post vaginal delivery: Status: Acute Category: Surgical (2) Encounter for induction of labor: Status: Acute Category: Medical Code(s): Z34.90 - Encounter for supervision of normal , unspecified, unspecified trimester (3) Post-dates : Status: Acute Qualifiers: Post-term type: 40-42 weeks gestation Qualified Code(s): O48.0 - Post-term Category: Medical Code(s): O48.0 - Post-term (4) Acute blood loss anemia: Status: Acute Category: Medical Code(s): D62 - Acute posthemorrhagic anemia Plan Continue routine care Encouraged increased ambulation Venofer 200 mg IV x 1 dose Plan d/c home PPD # 2
[2023-07-03 08:10] VITALS: BP 127/83; PULSE 83; RESP 18; TEMP 36.7; O2SAT 98
[2023-07-03] MEDS: IRON SUCROSE COMPLEX 200 MG in 0.9 % SODIUM CHLORIDE 100 ML 220 MG IV (08:17)
[2023-07-03] MEDS: ACETAMINOPHEN 500MG TAB 1000 MG PO ×2 (08:28→20:40)
[2023-07-03] MEDS: PRENATAL MULTIVITAMIN W/IRON 1 EACH PO (17:33)
[2023-07-03 20:30] VITALS: BP 124/74; PULSE 80; RESP 18; TEMP 36.8; O2SAT 99
[2023-07-03] MEDS: SENNA 8.6MG TABLET 8.59999999999999964 MG PO (20:40)
[2023-07-04 04:08] VITALS: BP 109/63; PULSE 72; RESP 18; TEMP 36.8; O2SAT 99
[2023-07-04 07:54] VITALS: BP 116/63; PULSE 83; RESP 17; TEMP 36.7; O2SAT 99
--- NOTE | 2023-07-04 08:41 | EXP.DC.SUM ---
General Admission date:: 07/01/23 Discharge date: 07/04/23 HPI HPI HPI: PPD # 2 s/p Feeling well. Pain controlled. Breast and formula feeding. Light lochia. Voiding without difficulty. Passing flatus. Tolerating regular diet. Denies fever/chills, chest pain and shortness of breath. No headaches, vision changes, lightheadedness/dizziness. Admits mild swelling in her feet and ankles. No calf tenderness. Ambulating well ad jon. Hospital Course Hospital Course Hospital Course: Ms Bev Cooper is a 22 yo at 40w5d who presents to [facility] for scheduled induction of labor for postdates. She was a transfer of care from [place] at 28 weeks. She has had good care. Growth ultrasound 06/05/23 demonstrated EFW 37 %ile. GBS negative. She under went induction of labor with Cytotec. She had a normal spontaneous vaginal delivery on 07/02/23 at 0804. She delivered a live female baby, Autumn, weighing 7 lb 1 oz. APGARs 7 (1 min), 9 (5 min). EBL 450 mL She did well . Pain controlled. Breast and formula feeding. Light lochia. Voiding without difficulty. Passing flatus. Tolerating regular diet. Denies fever/chills, chest pain and shortness of breath. No headaches, vision changes, lightheadedness/dizziness. Vital signs stable, afebrile. Heart regular rate and rhythm. Lungs clear to auscultation. Abdomen soft, nontender. She had +1 bilateral lower extremity edema. No calf tenderness to palpation. Ambulating well ad jon. Normal hospital course. PPD # 1 Hgb 8.7 (10.6). She received Venofer 200 mg IV x 1 dose on PPD # 1. Exam Data for Last 24 hours Vital signs and Labs for Last 24 Hours: Temp Pulse Resp BP Pulse Ox O2 Del Method 98.2 F 72 18 109/63 L 99 Room Air 07/04/23 04:08 07/04/23 04:08 07/04/23 04:08 07/04/23 04:08 07/04/23 04:08 07/04/23 04:08 I & O for Last 24 hours: Intake & Output 07/01/23 07/02/23 07/03/2324 23:59 23:59 23:59 23:59 Output Total 300 / 300 Balance -300 / -300 Weight 147 lb Constitutional Constitutional: no acute distress and cooperative *Routine HEENT Exam Head: Present normocephalic and atraumatic Eye: Absent conjunctivae pink ENT: Present mucous membranes moist and dentition normal *Routine Neck Exam Neck: Present full ROM *Routine Respiratory Exam Respiratory: Present CTA bilaterally and normal respiratory effort *Routine Cardiovascular Exam Cardiovascular: Present RRR *Routine Abdominal Exam Abdominal: Present soft; Absent tenderness or distended Comments: Uterine fundus firm and below umbilicus *Routine Rectal Exam Patient deferred: visual exam *Routine Exam Patient deferred: external exam *Routine Extremities Exam Extremities: Present edema (+1 bilateral lower extremity edema) and full ROM; Absent calf tenderness *Routine Neurological Exam Neurological: Present alert, moving all extremities and normal speech Routine Psychiatric Exam Psychiatric: Present normal affect and cooperative DS: Diagnosis Discharge Diagnosis (1) Status post vaginal delivery: Status: Acute (2) Encounter for induction of labor: Status: Acute Code(s): Z34.90 - Encounter for supervision of normal , unspecified, unspecified trimester (3) Post-dates : Status: Acute Code(s): O48.0 - Post-term Qualifiers: Post-term type: 40-42 weeks gestation Qualified Code(s): O48.0 - Post-term (4) Acute blood loss anemia: Status: Acute Code(s): D62 - Acute posthemorrhagic anemia Meds Home Medications and Allergies Home Medications Medication Instructions Recorded Confirmed Type vits no.126-ferrous fum 1 tab PO DAILY Supplement 04/09/23 07/01/23 History 28 mg iron-folic acid 800 mcg tablet (Classic ) New Prescriptions to Start Prescriptions: Allergies Allergy/AdvReac Type Severity Reaction Status Date / Time banana Allergy Mild Verified 06/30/23 08:54 shellfish derived Allergy Mild Verified 06/30/23 08:54 Discharge Plan Disposition Patient Disposition: Home, Self-Care Condition: Good Discharge Order Discharge Orders: Discharge Order (Routine); Ordered 07/04/23 Ordered By: Kayla Starr Follow up Plan Follow up with: Kayla Starr DO [Staff Physician] - 07/14/23 1:45 pm Prescriptions/Medication Reconciliation: Continued Classic 28 mg iron- 800 mcg tablet 1 tab PO DAILY Problem Reconciliation Problems Reviewed?: Yes Patient Discharge Instructions ACTIVITY: Limited activity DIET: continue same diet Additional Instructions: Discharge: 1. Take 800 mg Ibuprofen every 8 hours as needed for pain. You can also take 500-1000 mg of Tylenol in between doses, every 6-8 hours. 2. Nothing in the vagina for 6 weeks - no intercourse, douching or tampons. No tub baths/hot tubs or swimming pools 3. Reasons to return to L&D or call On-Call doctor - fever (greater than 100.4) - heavy vaginal bleeding (soaking through 1 pad in less than 2 hours) - vaginal discharge (malodorous and/or purulent) - severe headaches not resolved by medication or rest and leg tenderness/edema 4. depression/blues - Normal to feel anxious/overwhelmed for first 2 weeks - Talk to your doctor if: severe anxiety, trouble bonding with baby, withdrawing from other family members, thoughts of harming yourself or others Kayla Starr DO [facility] [phone] Patient Instructions: Depression, Hemorrhage, DI for Labor and Delivery, Vaginal , DI for Pre-eclampsia, H Post Discharge Instructions Providers Primary Care Provider: Lam Staley Admpaz Provider: Kayla Starr Attending Provider: Kayla Starr
--- NOTE | 2023-07-04 10:53 | EXP.DC.SUM ---
General Admission date:: 07/01/23 HPI HPI HPI: PPD # 2 s/p Feeling well. Pain controlled. Breast and formula feeding. Light lochia. Voiding without difficulty. Passing flatus. Tolerating regular diet. Denies fever/chills, chest pain and shortness of breath. No headaches, vision changes, lightheadedness/dizziness. Admits mild swelling in her feet and ankles. No calf tenderness. Ambulating well ad jon. Exam Data for Last 24 hours Vital signs and Labs for Last 24 Hours: Temp Pulse Resp BP Pulse Ox O2 Del Method 98.1 F 83 17 116/63 99 Room Air 07/04/23 07:54 07/04/23 07:54 07/04/23 07:54 07/04/23 07:54 07/04/23 07:54 07/04/23 07:54 I & O for Last 24 hours: Intake & Output 07/01/23 07/02/23 07/03/23 07/04/23 23:59 23:59 23:59 23:59 Output Total 300 / 300 Balance -300 / -300 Weight 147 lb DS: Diagnosis Discharge Diagnosis (1) Status post vaginal delivery: Status: Acute (2) Encounter for induction of labor: Status: Acute Code(s): Z34.90 - Encounter for supervision of normal , unspecified, unspecified trimester (3) Post-dates : Status: Acute Code(s): O48.0 - Post-term Qualifiers: Post-term type: 40-42 weeks gestation Qualified Code(s): O48.0 - Post-term (4) Acute blood loss anemia: Status: Acute Code(s): D62 - Acute posthemorrhagic anemia Meds Home Medications and Allergies Home Medications Medication Instructions Recorded Confirmed Type vits no.126-ferrous fum 1 tab PO DAILY Supplement 04/09/23 07/01/23 History 28 mg iron-folic acid 800 mcg tablet (Classic ) New Prescriptions to Start Prescriptions: Allergies Allergy/AdvReac Type Severity Reaction Status Date / Time banana Allergy Mild Verified 06/30/23 08:54 shellfish derived Allergy Mild Verified 06/30/23 08:54 Discharge Plan Disposition Patient Disposition: Home, Self-Care Condition: Good Discharge Order Discharge Orders: Discharge Order (Routine); Ordered 02/23/24 Ordered By: Kayla Starr Follow up Plan Follow up with: Kayla Starr DO [Staff Physician] - 07/14/23 1:45 pm Prescriptions/Medication Reconciliation: Continued Classic 28 mg iron- 800 mcg tablet 1 tab PO DAILY Problem Reconciliation Problems Reviewed?: Yes Patient Discharge Instructions ACTIVITY: Limited activity DIET: continue same diet Additional Instructions: Discharge: 1. Take 800 mg Ibuprofen every 8 hours as needed for pain. You can also take 500-1000 mg of Tylenol in between doses, every 6-8 hours. 2. Nothing in the vagina for 6 weeks - no intercourse, douching or tampons. No tub baths/hot tubs or swimming pools 3. Reasons to return to L&D or call On-Call doctor - fever (greater than 100.4) - heavy vaginal bleeding (soaking through 1 pad in less than 2 hours) - vaginal discharge (malodorous and/or purulent) - severe headaches not resolved by medication or rest and leg tenderness/edema 4. depression/blues - Normal to feel anxious/overwhelmed for first 2 weeks - Talk to your doctor if: severe anxiety, trouble bonding with baby, withdrawing from other family members, thoughts of harming yourself or others Kayla Starr DO [facility] [phone] Patient Instructions: Depression, Hemorrhage, DI for Labor and Delivery, Vaginal , DI for Pre-eclampsia, [facility] Post Discharge Instructions Providers Primary Care Provider: Lam Staley Admpaz Provider: Kayla Starr Attending Provider: Kayla Starr
== END 2023-07-04 11:09 | disposition home or self-care (01) | DRG 806 ==
PROVIDERS: Admitting Provider Obstetrics & Gynecology; PCP Internal Medicine Adolescent Medicine; Visit Provider Obstetrics & Gynecology
DX: O48.0 Post-term pregnancy (principal); D62 Acute posthemorrhagic anemia; Z37.0 Single live birth; Z3A.40 40 weeks gestation of pregnancy; O69.81X0 Labor and delivery complicated by cord around neck, without compression, not applicable or unspecified; O70.0 First degree perineal laceration during delivery; O90.81 Anemia of the puerperium
CPT/HCPCS: 59409; 36415; 59025; 80307; 81001; 82800; 85025; 86850; 94761; G0283; J1756

== ENCOUNTER 2023-07-07 13:06 | Outpatient (CLI) | payer BC, OTHER, SELFPAY ==
--- NOTE | 2023-07-07 13:09 | CA_ITS ---
FINAL REPORT TECHNIQUE: Graded compression, spectral analysis and ultrasound images of the venous system of the right upper extremity were obtained. CLINICAL HISTORY: PAIN/KNOT RIGHT AC S/P MULTIPLE IV'S STICKS RIGHT ARM COMPARISON: None FINDINGS: There is no evidence of deep venous thrombosis. There is echogenic material in the basilic vein of the distal arm and antecubital fossa consistent with superficial thrombus. IMPRESSION: No evidence of DVT. Basilic vein thrombus. Reviewed, Interpreted and Dictated by Laura Carlisle MD Transcribed by Kathy Richards Authenticated and [facility]
== END 2023-07-07 23:59 ==
LOC: RT 13:07
PROVIDERS: PCP Internal Medicine Adolescent Medicine; Visit Provider Nurse Practitioner Family
DX: M79.601 Pain in right arm (principal); M79.89 Other specified soft tissue disorders
CPT/HCPCS: 93971

== ENCOUNTER 2023-09-17 13:05 | Outpatient (CLI) | payer BC, OTHER, SELFPAY ==
--- NOTE | 2023-09-17 13:06 | US_ITS ---
PROCEDURE: US TRANSVAGINAL CLINICAL INDICATION: check IUD Placement COMPARISON: No exams were available for comparison FINDINGS: Transvaginal sonographic images of the pelvis were obtained. UTERUS: 6.7cm x 5.3cmx 3.7 cm anteverted with a combined endometrial thickness of 3.3mm. There is an IUD within the uterine cavity in the correct position. LEFT OVARY: 2.6 cmx1.8 cmx1.5cm with a volume of 3.5ml. There are multiple small follicles. The largest measures 6 mm. Left ovary is located posterior to the uterus. RIGHT OVARY: 3.2cmx 2.6 cmx1.7 cm with a volume of 7.2ml. There are 2 prominent follicles. The largest measures 1.6 cm x 1.1 cm x 1.1 cm. Both ovaries are seen and appear normal. Doppler flow to both ovaries are seen. There is a small amount of fluid in the cul-de-sac. The fluid has a ground-glass appearance and could be retrograde blood. IMPRESSION: 1. Anteverted uterus normal in shape and size. 2. There is an IUD in the correct position within the uterine cavity. 3. The left ovary has polycystic appearance and is posterior to the uterus. 4. The right ovary has 2 small follicles the largest being 1.6 cm. 5. There is a small amount of fluid in the cul-de-sac that has a ground-glass appearance, possibly retrograde blood. Dictated by: Kendall Zhang MD 09/17/2023 15:18 Kendall Zhang MD in [place] 09/17/2023 15:18
[2023-09-17 13:59] LABS: Basophils # 0.1 K/mm3 (0-0.2); Basophils % 1.1 % (0.1-2.0); Eosinophils # 0.2 K/mm3 (0.0-0.4); Eosinophils % 2.5 % (0.1-12.0); Hematocrit 35.8 % (37.0-47.0); Hemoglobin 11.4 g/dL (12.2-16.2); Lymphocytes # 2.8 K/mm3 (0.7-4.5); Lymphocytes % 41.5 % (10-50); Mean Corpuscular Hemoglobin 25.9 pg (27.0-31.2); Mean Platelet Volume 9.2 fl (7.4-10.4); Monocytes # 0.5 K/mm3 (0.1-1.0); Monocytes % 7.6 % (1.7-9.3); Neutrophils # 3.2 K/mm3 (1.8-7.8); Neutrophils % 47.4 % (37.0-80.0); Platelet Count 261 K/mm3 (142-424); Red Blood Count 4.42 M/mm3 (4.20-5.40); Red Cell Distribution Width 18.6 % (11.5-17.5); White Blood Count 6.7 K/mm3 (4.8-10.8)
[2023-09-17 14:17] LABS: Chloride 103 mmol/L (98-107); Potassium 4.2 mmoL/L (3.5-5.1); Sodium 138 mmol/L (136-145)
[2023-09-17 14:19] LABS: Blood Urea Nitrogen 15 mg/dl (7-17)
[2023-09-17 14:20] LABS: Alanine Aminotransferase 28 U/L (12-78); Albumin Level 4.5 g/dl (3.5-5.0); Albumin/Globulin Ratio 1.4 (1.1-1.8); Alkaline Phosphatase 83 U/L (38-126); Anion Gap 13.2 mEq/L (5-15); Aspartate Amino Transferase 37 U/L (14-36); Bilirubin,Total 0.7 mg/dl (0.2-1.3); Calcium 9.8 mg/dl (8.4-10.2); Carbon Dioxide 26 mmol/L (22.0-30.0); Estimated Glomerular Filt Rate 105 ml/min (>60); GFR (African American) 127 ML/MIN (>60); Globulin 3.2 g/dL (1.3-3.2); Glucose 89 mg/dl (74-100); Total Protein,Serum 7.7 g/dl (6.3-8.2)
== END 2023-09-17 23:59 | disposition home or self-care (01) ==
LOC: RAD 13:06
PROVIDERS: Obstetrics & Gynecology; PCP Internal Medicine Adolescent Medicine; Visit Provider Nurse Practitioner Obstetrics & Gynecology
DX: N92.1 Excessive and frequent menstruation with irregular cycle (principal); Z97.5 Presence of (intrauterine) contraceptive device
CPT/HCPCS: 36415; 76830; 80053; 84443; 85025

== ENCOUNTER 2023-12-16 16:27 | Emergency (ER) | payer BC, OTHER, SELFPAY ==
[2023-12-16 16:28] VITALS: BP 139/95; PULSE 87; RESP 19; TEMP 36.6; O2SAT 100; BMI 25.2
--- NOTE | 2023-12-16 16:30 | ED_ITS ---
<Statement entered by Niraj Starks MD - 12/16/23 18:16> I was consulted by the MARCELA, and we discussed the complexity of the problems being addressed. I approved the treatment and management plan for this patient's care in the emergency department, thus performing a substantive portion of the medical decision making. Niraj Starks MD Patient has intermittent right upper quadrant abdominal pain, none currently, no signs of hepatobiliary involvement based on the labs and [id number] ultrasound at bedside although the common bile duct was not identified her labs do not support cholestasis. Patient has no abdominal pain currently. Suspect her chest pain has been going on long enough that I would suspect if it was cardiac in nature would have an elevated troponin and given her age and lack of cardiovascular risk factors I suspect she has an alternative cause of her chest pain. She has had a previous diagnosis of GERD and is not currently taking any medications. Perhaps this is what is contributing to her nocturnal chest pain however I will defer treatment to Dr. Staley given that it will require prolonged course at maintenance. Discharge Plan Disposition Patient Disposition: Home, Self-Care Condition: Good Prescriptions Prescriptions: New pantoprazole [Protonix] 40 mg tablet,delayed release (DR/EC) 40 mg PO HS Qty: 30 0RF No Action norgestimate-ethinyl estradiol [Milvia] 0.25-35 mg-mcg tablet 1 tab PO DAILY Qty: 84 4RF Referrals Follow up/Referrals: Lam Staley MD [Primary Care Provider] - See instructions Activity Restrictions/Add. Instructions Additional Instructions/Restrictions: Please contact Dr. Staley's office to establish follow-up. I have started you on Protonix which you can take at bedtime. Additionally you may be able to get Pepcid [id number] and take that symptomatically for more acute relief. If you continue having right upper quadrant and chest pain you may need more urgent review and you may return to ER as needed for any worsening signs or symptoms. Clinical Impressions Clinical Impression: Chest pain, Intermittent right upper quadrant abdominal pain Print Language Print Language: Albanian Discharge ED Provider: Niraj Starks HPI <GORDON Meier - Last Filed: 12/16/23 18:10> General Chief Complaint: Arrhythmia/Palpitations Stated Complaint: SOA, light-headed Time Seen by Provider: 12/16/23 16:30 History of Present Illness HPI narrative: Patient presents for evaluation of chest pain and abdominal pain. Patient states that she has had several episodes of chest pain intermittently over the last week. Patient also reports for the last week she has had intermittent right upper quadrant abdominal pain. Patient is 5 months and has a history of remote asthma with allergies to shellfish and bananas. Patient states that when she got up with her baby last night she had severe onset of substernal chest pain that did not radiate. She had some nausea but no vomiting or diarrhea. It subsided and patient is currently chest pain-free while in the ER. Patient also reports that she has had intermittent right upper quadrant abdominal pain and she is not aware of food provoking or not. It also does not radiate anywhere. She denies any fever chills hemoptysis hematochezia melena. Related Data Previous Rx's ?Medication ?Instructions ?Recorded Milvia 0.25 mg-35 mcg tablet 1 tab PO DAILY #84 tabs 10/07/23 (norgestimate-ethinyl estradiol) pantoprazole 40 mg tablet,delayed 40 mg PO HS #30 tabs 12/16/23 release (Protonix) Allergies Allergy/AdvReac Type Severity Reaction Status Date / Time banana Allergy Mild Verified 10/07/23 16:00 shellfish derived Allergy Mild Verified 10/07/23 16:00 [facility] <GORDON Meier - Last Filed: 12/16/23 18:10> [facility] Disclaimer: The information contained in this section may have been updated after the patient was seen, as this information can be updated by other users. 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 current occupational exposures/hazards: No <GORDON Meier - Last Filed: 12/16/23 18:10> ROS Obtained: Yes Systems reviewed as appropriate & no additional complaints except as documented Physical Exam <GORDON Meier - Last Filed: 12/16/23 18:10> General General appearance: alert and in no apparent distress ENT ENT exam: Present normal oropharynx Chest Chest inspection: Present normal inspection and symmetric chest wall rise; Absent tenderness Respiratory Respiratory exam: Present normal lung sounds bilaterally; Absent respiratory distress or wheezes Cardiovascular Cardiovascular exam: Present regular rate and normal rhythm Abdominal Exam Abdominal exam: Present soft and normal bowel sounds; Absent tenderness, guarding, rebound or rigidity Extremities Exam Extremities exam: Present normal inspection and full ROM Back Exam Back exam: Present normal inspection and full ROM; Absent tenderness Neurological Exam Neurological exam: Present alert and oriented X3 Psychiatric Psychiatric exam: Present normal affect and normal mood Skin Skin exam: Present warm, dry and normal color HEART Score <GORDON eMier - Last Filed: 12/16/23 18:10> HEART Score HEART Score assessment performed?: Yes History (anamnesis): Slightly suspicious ECG: Normal Age: <45 years Risk factors: No known risk factors Troponin: </= normal limit HEART Score: 0 Critical Care <GORDON Meier Last Filed: 12/16/23 18:10> Critical Care Time Critical Care Time: No Medical Decision Making <GORDON Meier - Last Filed: 12/16/23 18:10> Medical Records Medical records reviewed: Yes I reviewed the patient's medical records. Marek Inquiry Pt receiving controlled substance: No Vital Signs Vital Signs: 12/16/23 16:28 12/16/23 17:00 Temperature 97.9 F Temperature Source Oral Pulse Rate 66 Pulse Rate [Left Radial] 87 Respiratory Rate 19 Blood Pressure 131/75 Blood Pressure [Right Arm] 139/95 H Blood Pressure Mean [Right Arm] 109 02 Sat by Pulse Oximetry 100 100 Oxygen Delivery Method Room Air Room Air Lab Data Lab results reviewed: Yes I reviewed the patient's lab results. Labs: Lab Results 12/16/23 16:32: WBC 6.4, RBC 4.35, Hgb 12.3, Hct 35.8 L, MCV 82.3, MCH 28.2, MCHC 34.3, RDW 16.9, Plt Count 269, MPV 9.1, Neut % (Auto) 44.7, Lymph % (Auto) 45.3, [place] % (Auto) 6.4, Eos % (Auto) 2.4, Baso % (Auto) 1.2, Neut # (Auto) 2.9, Lymph # (Auto) 2.9, [place] # (Auto) 0.4, Eos # (Auto) 0.2, Baso # (Auto) 0.1, Sodium 139, Potassium 3.6, Chloride 105, Carbon Dioxide 26, Anion Gap 11.6, BUN 12, Creatinine 0.80, Estimated Creat Clear 103, Estimated GFR 89, Est GFR ( Amer) 108, Glucose 93, Calcium 8.9, Magnesium 1.9, Total Bilirubin 0.6, AST 35, ALT 18, Alkaline Phosphatase 65, Troponin I < 0.01, Total Protein 8.4 H, Albumin 4.5, Globulin 3.9 H, Albumin/Globulin Ratio 1.2, Lipase 170, Serum HCG, Qual Negative 12/16/23 16:46: D-Dimer 0.29 12/16/23 16:54: Urine Color Yellow, Urine Appearance Clear, Urine pH 7.0, Ur Specific Hopkins 1.010, Urine Protein Negative, Urine Glucose (UA) Negative, Urine Ketones Negative, Urine Blood Negative, Urine Nitrate Negative, Urine Bilirubin Negative, Urine Urobilinogen 0.2, Ur Leukocyte Esterase Negative, Urine RBC None, Urine WBC None, Ur Squamous Epith Cells Occasional, Urine Bacteria None 12/16/23 16:32 12/16/23 16:32 Response Orders (Tests/Meds): ED MEDICATIONS Discontinued Medications Generic Name Dose Route Start Last Admin Trade Name Freq PRN Reason Stop Dose Admin Lactated Ringer's 1,000 mls @ 999 mls/hr 12/16/23 16:37 12/16/23 17:00 Lactated Ringer's 1000 Ml Bag IV 12/16/23 17:37 999 mls/hr .Q1H1M ONE Administration ORDERS Category Date Time Status Chest XR -- portable [XR chest portable] Stat Exams 08/06/24 17:23 Taken POCUS Point of Care (ER Only) Stat Exams 12/16/23 16:49 Completed CBC w/Auto Diff [Complete Blood Count Auto Diff] Stat Lab 12/16/23 16:32 Completed CMP [Comprehensive Metabolic Panel] Stat Lab 12/16/23 16:32 Completed D-Dimer Stat Lab 12/16/23 16:46 Completed HCG Qualitative, Serum Stat Lab 12/16/23 16:32 Completed Lipase Stat Lab 12/16/23 16:32 Completed Magnesium Stat Lab 12/16/23 16:32 Completed Trop I [Troponin I] Stat Lab 12/16/23 16:32 Completed Troponin I Q3H Lab 12/16/23 19:45 Ordered Troponin I Q3H Lab 12/16/23 22:45 Ordered UA [Urinalysis and Microscopic] Stat Lab 12/16/23 16:54 Completed MDM Narrative Medical Decision Narrative: In summary patient is a 23-year-old female who presents to the emergency department for evaluation of chest pain and abdominal pain. Patient is hemodynamically stable upon arrival, afebrile. Physical exam is currently unremarkable and nonfocal including normal breath sounds normal heart sounds no right upper quadrant tenderness no epigastric tenderness on palpation. Bowel sounds normal active without any rebound or guarding or rigidity.. Differential diagnosis includes ACS versus PE although very unlikely versus arrhythmia versus biliary colic versus cholecystitis versus kidney stone etc. Initial workup will be conducted with hematologic labs chest x-ray twelve-lead EKG D-dimer urinalysis. Initial interventions were considered but as patient is currently asymptomatic will defer for now. Initial workup reviewed by me shows that her hematologic labs are nonactionable, her POCUS is unremarkable and my informal interpretation of her plain from chest x-ray shows no acute processes. Upon repeat evaluation has continued to be pain-free. Given this patient is appropriate for discharge with a prescription of Protonix and close follow-up with her PCP Dr. Staley and with strict return precautions Gallbladder ultrasound performed by Niraj Antoine indication: Intermittent abdominal pain Identified structures: -Gallbladder -Gallbladder wall -Liver Findings: Sonographic Gutierrez sign: Absent Gallstones: Absent Sludge: Absent Pericholecystic fluid: Absent Maximal GB wall thickness (mm): 2.8 mm Normal Common bile duct width (mm): Not visualized Impression: Normal gallbladder Images were saved to permanent archive The study was technically adequate CPT 82846-26 This study was performed by me, and I personally interpreted all images/videos. Based on my clinical judgement, these images were adequate and did not necessitate further imaging. <Niraj Starks MD - Last Filed: 12/16/23 17:24> Vital Signs Vital Signs: 12/16/23 16:28 12/16/23 17:00 Temperature 97.9 F Temperature Source Oral Pulse Rate 66 Pulse Rate [Left Radial] 87 Respiratory Rate 19 Blood Pressure 131/75 Blood Pressure [Right Arm] 139/95 H Blood Pressure Mean [Right Arm] 109 02 Sat by Pulse Oximetry 100 100 Oxygen Delivery Method Room Air Room Air Lab Data Labs: Lab Results 12/16/23 16:32: WBC 6.4, RBC 4.35, Hgb 12.3, Hct 35.8 L, MCV 82.3, MCH 28.2, MCHC 34.3, RDW 16.9, Plt Count 269, MPV 9.1, Neut % (Auto) 44.7, Lymph % (Auto) 45.3, [place] % (Auto) 6.4, Eos % (Auto) 2.4, Baso % (Auto) 1.2, Neut # (Auto) 2.9, Lymph # (Auto) 2.9, [place] # (Auto) 0.4, Eos # (Auto) 0.2, Baso # (Auto) 0.1, Sodium 139, Potassium 3.6, Chloride 105, Carbon Dioxide 26, Anion Gap 11.6, BUN 12, Creatinine 0.80, Estimated Creat Clear 103, Estimated GFR 89, Est GFR ( Amer) 108, Glucose 93, Calcium 8.9, Magnesium 1.9, Total Bilirubin 0.6, AST 35, ALT 18, Alkaline Phosphatase 65, Troponin I < 0.01, Total Protein 8.4 H, Albumin 4.5, Globulin 3.9 H, Albumin/Globulin Ratio 1.2, Lipase 170, Serum HCG, Qual Negative 12/16/23 16:46: D-Dimer 0.29 12/16/23 16:54: Urine Color Yellow, Urine Appearance Clear, Urine pH 7.0, Ur Specific Hopkins 1.010, Urine Protein Negative, Urine Glucose (UA) Negative, Urine Ketones Negative, Urine Blood Negative, Urine Nitrate Negative, Urine Bilirubin Negative, Urine Urobilinogen 0.2, Ur Leukocyte Esterase Negative, Urine RBC None, Urine WBC None, Ur Squamous Epith Cells Occasional, Urine Bacteria None Response Orders (Tests/Meds): ED MEDICATIONS Discontinued Medications Generic Name Dose Route Start Last Admin Trade Name Prisca PRN Reason Stop Dose Admin Lactated Ringer's 1,000 mls @ 999 mls/hr 12/16/23 16:37 12/16/23 17:00 Lactated Ringer's 1000 Ml Bag IV 12/16/23 17:37 999 mls/hr .Q1H1M ONE Administration ORDERS Category Date Time Status Chest XR -- portable [XR chest portable] Stat Exams 12/16/23 17:23 Taken POCUS Point of Care (ER Only) Stat Exams 12/16/23 16:49 Completed CBC w/Auto Diff [Complete Blood Count Auto Diff] Stat Lab 12/16/23 16:32 Completed CMP [Comprehensive Metabolic Panel] Stat Lab 12/16/23 16:32 Completed D-Dimer Stat Lab 12/16/23 16:46 Completed HCG Qualitative, Serum Stat Lab 12/16/23 16:32 Completed Lipase Stat Lab 12/16/23 16:32 Completed Magnesium Stat Lab 12/16/23 16:32 Completed Trop I [Troponin I] Stat Lab 12/16/23 16:32 Completed Troponin I Q3H Lab 12/16/23 19:45 Ordered Troponin I Q3H Lab 12/16/23 22:45 Ordered UA [Urinalysis and Microscopic] Stat Lab 12/16/23 16:54 Completed ECG Data Tracing #1: ECG Narrative: Independently interpreted by me rate 69, rhythm is regular, axis is normal, no ST elevation in anatomical contiguous leads, QTc 415 MDM Narrative Medical Decision Narrative: In summary patient is a 23-year-old female who presents to the emergency department for evaluation of chest pain and abdominal pain. Patient is hemodynamically stable upon arrival, afebrile. Physical exam is currently unremarkable and nonfocal including normal breath sounds normal heart sounds no right upper quadrant tenderness no epigastric tenderness on palpation. Bowel sounds normal active without any rebound or guarding or rigidity.. Differential diagnosis includes ACS versus PE although very unlikely versus arrhythmia versus biliary colic versus cholecystitis versus kidney stone etc. Initial workup will be conducted with hematologic labs chest x-ray twelve-lead EKG D-dimer urinalysis. Initial interventions were considered but as patient is currently asymptomatic will defer for now. Initial workup reviewed by me [hematologic labs are remarkable for... Imaging remarkable for... Urinalysis remarkable for]. Upon repeat evaluation [patient had acceptable resolution of symptoms, had persistent pain for which additional interventions were conducted (describe interventions), tolerated p.o., was ambulatory, etc.]. Given this [patient is appropriate for discharge at this time and will be discharged with a prescription for... The case was discussed with hospital medicine regarding management and they will admit the patient their service for continued evaluation at this time... Etc.] Gallbladder ultrasound performed by Niraj Antoine indication: Intermittent abdominal pain Identified structures: -Gallbladder -Gallbladder wall -Liver Findings: Sonographic Gutierrez sign: Absent Gallstones: Absent Sludge: Absent Pericholecystic fluid: Absent Maximal GB wall thickness (mm): 2.8 mm Normal Common bile duct width (mm): Not visualized Impression: Normal gallbladder Images were saved to permanent archive The study was technically adequate CPT 31974-85 This study was performed by me, and I personally interpreted all images/videos. Based on my clinical judgement, these images were adequate and did not necessitate further imaging.
--- NOTE | 2023-12-16 16:41 | ECG_ITS ---
APPROVED REPORT Exam: Resting ECG HR:69 bpm ECG Measurements Heart Rate 69 AXES AK 177 P 70 QRSd 90 QRS 81 QT 396 T 75 QTc 415 Conclusion SINUS RHYTHM NORMAL ECG Electronically signed by : MARIAA GREEN, 12/17/2023 03:25:56
[2023-12-16 16:44] VITALS: BMI 23.9
[2023-12-16 16:48] LABS: Basophils # 0.1 K/mm3 (0-0.2); Basophils % 1.2 % (0.1-2.0); Eosinophils # 0.2 K/mm3 (0.0-0.4); Eosinophils % 2.4 % (0.1-12.0); Hematocrit 35.8 % (37.0-47.0); Hemoglobin 12.3 g/dL (12.2-16.2); Lymphocytes # 2.9 K/mm3 (0.7-4.5); Lymphocytes % 45.3 % (10-50); Mean Corpuscular HGB Conc 34.3 g/dL (31.8-35.4); Mean Corpuscular Hemoglobin 28.2 pg (27.0-31.2); Mean Corpuscular Volume 82.3 fl (81-99); Mean Platelet Volume 9.1 fl (7.4-10.4); Monocytes # 0.4 K/mm3 (0.1-1.0); Monocytes % 6.4 % (1.7-9.3); Neutrophils # 2.9 K/mm3 (1.8-7.8); Neutrophils % 44.7 % (37.0-80.0); Platelet Count 269 K/mm3 (142-424); Red Blood Count 4.35 M/mm3 (4.20-5.40); Red Cell Distribution Width 16.9 % (11.5-17.5); White Blood Count 6.4 K/mm3 (4.8-10.8)
[2023-12-16 16:50] LABS: Albumin Level 4.5 g/dl (3.5-5.0); Chloride 105 mmol/L (98-107); Potassium 3.6 mmoL/L (3.5-5.1); Sodium 139 mmol/L (136-145)
[2023-12-16 16:53] LABS: Alanine Aminotransferase 18 U/L (12-78); Albumin/Globulin Ratio 1.2 (1.1-1.8); Alkaline Phosphatase 65 U/L (38-126); Anion Gap 11.6 mEq/L (5-15); Aspartate Amino Transferase 35 U/L (14-36); Bilirubin,Total 0.6 mg/dl (0.2-1.3); Blood Urea Nitrogen 12 mg/dl (7-17); Calcium 8.9 mg/dl (8.4-10.2); Carbon Dioxide 26 mmol/L (22.0-30.0); Creatinine Clearance Estimated 103 mL/min (50-200); Estimated Glomerular Filt Rate 89 ml/min (>60); GFR (African American) 108 ML/MIN (>60); Globulin 3.9 g/dL (1.3-3.2); Glucose 93 mg/dl (74-100); Lipase 170 U/L (23-300); Magnesium 1.9 mg/dl (1.6-2.3); Total Protein,Serum 8.4 g/dl (6.3-8.2)
[2023-12-16 16:57] LABS: Microscopic, Urine URINE MICROSCOPIC (MICROSCOPIC)
[2023-12-16 17:00] VITALS: BP 131/75; PULSE 66; O2SAT 100
[2023-12-16 17:00] LABS: Appearance,Urine CLEAR (Clear); Bilirubin,Urine Negative (Negative); Blood, Urine Negative (Negative); Color,Urine YELLOW (Yellow); Glucose,Urine (UA) Negative (Negative); Ketones,Urine Negative (Negative); Leukocyte Esterase,Urine Negative (Negative); Nitrate,Urine Negative (Negative); Protein,Urine Negative (Negative); Urobilinogen,Urine 0.2 EU/dl (0.2)
[2023-12-16] MEDS: LACTATED RINGERS 1000ML 1,000 ML 999 ML IV (17:00)
[2023-12-16 17:07] LABS: Troponin I < 0.01 ng/ml (0.00-0.034)
[2023-12-16 17:09] LABS: D-Dimer 0.29 ug/mL (0.0-0.5)
[2023-12-16 17:22] LABS: Squamous Epithelial Cell,Urine Occasional #/hpf (0-5)
--- NOTE | 2023-12-16 17:23 | XR_ITS ---
PROCEDURE INFORMATION: Exam: XR Chest Exam date and time: 12/16/2023 5:52 PM Age: 23 years old Clinical indication: Other: Chest pain TECHNIQUE: Imaging protocol: Radiologic exam of the chest. Views: 1 view. COMPARISON: CR CXR2V XR chest 2V 07/14/2018 1:22 PM FINDINGS: Lungs: No evidence of acute pulmonary disease or infiltrates Pleural spaces: No large effusion or pneumothorax. Heart/Mediastinum: Stable cardiac and mediastinal contours. Bones/joints: No evidence of acute osseous abnormalities within the visualized portions of the thoracic spine and ribs. Osseous structures appear appropriate for patient age. IMPRESSION: No dense parenchymal consolidation, pleural effusion, or pneumothorax.
[2023-12-16 17:30] LABS: HCG Qualitative, Serum Negative (Negative)
[2023-12-16 18:33] VITALS: BP 122/87; PULSE 70; RESP 16; TEMP 36.7
== END 2023-12-16 18:44 | disposition home or self-care (01) ==
PROVIDERS: Physician Assistant; Emergency Provider Emergency Medicine; PCP Internal Medicine Adolescent Medicine
DX: R07.89 Other chest pain (principal); R10.11 Right upper quadrant pain; R11.0 Nausea
CPT/HCPCS: 71045; 80053; 81001; 83690; 83735; 84484; 84703; 85025; 85378; 93005; 96360; 99285; J7120

== ENCOUNTER 2024-04-29 08:23 | Outpatient (CLI) | payer BC, OTHER, SELFPAY ==
--- NOTE | 2024-04-29 08:25 | MR_ITS ---
FINAL REPORT TECHNIQUE: Multiplanar MR, without and with gadolinium enhancement CLINICAL HISTORY: PARESTHESIA, WEAKNESS. HEADACHE, DIZZINESS COMPARISON: None FINDINGS: Diffusion sequences show no signal abnormality to indicate acute infarct. No mass, hemorrhage or edema is seen. Ventricles are normal. Major vascular flow voids are intact. Following contrast administration, no mass or abnormal enhancement is seen. IMPRESSION: Unremarkable MR evaluation the brain with contrast Reviewed, Interpreted and Dictated by Kellie Hawley MD Transcribed by Lisset Contreras Authenticated and . [facility]
[2024-04-29] MEDS: SODIUM CHLORIDE 0.9% 10ML SYR (RAD ONLY) 10 ML IV (09:20)
[2024-04-29] MEDS: GADOTERIDOL INJ 20ML SYRINGE 13 ML IV (09:20)
== END 2024-04-29 23:59 | disposition home or self-care (01) ==
LOC: RAD 08:24
PROVIDERS: PCP Internal Medicine Adolescent Medicine; Visit Provider Nurse Practitioner Family
DX: R53.1 Weakness (principal); R20.2 Paresthesia of skin; R70.0 Elevated erythrocyte sedimentation rate
CPT/HCPCS: 70553; A9576

== ENCOUNTER 2024-08-24 07:48 | Outpatient (CLI) | payer OTHER, SELFPAY ==
--- NOTE | 2024-08-24 07:52 | CA_ITS ---
FINAL REPORT CLINICAL HISTORY: BILATERAL LEG PAIN,NKI,EDEMA,HX DVT IN ARM FINDINGS: DUPLEX VENOUS SONOGRAPHY OF THE BILATERAL LOWER EXTREMITIES Multiple transverse and longitudinal scans were performed of the femoropopliteal deep venous systems, with augmentation and compression maneuvers. HISTORY: Bilateral leg pain and edema. FINDINGS: Normal phasic flow was noted in the visualized deep venous systems. No intraluminal increased echogenicity is noted to suggest thrombus. There is normal compression and augmentation of the venous structures. No abnormal venous collaterals are seen. IMPRESSION: No evidence of deep venous thrombosis of the bilateral lower extremities. Reviewed, Interpreted and Dictated by Laura Carlisle MD Transcribed by Margy Patiño Authenticated and [facility]
== END 2024-08-24 23:59 | disposition home or self-care (01) ==
LOC: RT 07:49
PROVIDERS: PCP Internal Medicine Adolescent Medicine; Visit Provider Nurse Practitioner Family
DX: R60.0 Localized edema (principal); M79.604 Pain in right leg; M79.605 Pain in left leg
CPT/HCPCS: 93970